=== PATIENT | female | born 1960 | race Caucasian/White ===

== ENCOUNTER 2017-02-17 20:02 | Emergency (ER) | payer MEDICARE, OTHER ==
[~2017-02-17] VITALS: Ht 160 cm; Wt 113.6 kg
[~2017-02-17 20:02] MED LIST: ACYC400T2 PO; ATA16T PO; AZU500 PO; GABA600T2 PO; HYDR2TAB27 PO; MTH/1CAP7 PO; PRE10 PO; PROM25TA14 PO
[2017-02-17 20:06] VITALS: BP 141/90; PULSE 68; RESP 20; O2SAT 98
--- NOTE | 2017-02-17 20:21 | ED.REPORT ---
HPI-Headache Date of Service Feb 17, 2017 ED Provider: Leonel Felder Patient is a 56 year old female with a hx of Lupus, HTN, hyperlipidemia, and kidney cancer who presents to the ED complaining of intermittent dizziness onset this morning upon waking at 0600. Associated symptoms include lightheadedness and a mild headache. Her dizziness is not modified by her position. She has been drinking plenty of fluids today. She denies fever, vomiting, weakness, numbness, tingling, vision changes, difficulties speaking or swallowing, or any other symptoms. She took Tylenol without relief. She had a double spinal fusion 9 weeks ago and was on blood thinners 30 days post-op. Nursing Notes Stated Complaint: HEADACHE, DIZZY Chief Complaint: Headache Nursing Notes Reviewed: Yes Allergies: Coded Allergies: felodipine (Unverified Adverse Reaction, Severe, PEDAL EDEMA, 02/17/17) hydrochlorothiazide (Unverified Adverse Reaction, Severe, FACIAL FLUSHING , 02/17/17) hydrocodone (Verified Adverse Reaction, Severe, NAUSEA, 02/17/17) oxycodone (Verified Adverse Reaction, Severe, NAUSEA, 02/17/17) propranolol (Unverified Adverse Reaction, Severe, FATIGUE, 02/17/17) Uncoded Allergies: QUINIPRIL/LISINOPRIL (Adverse Reaction, Severe, COUGH, 08/14/15) Scheduled Acyclovir (Acyclovir) 400 Mg Tablet 400 MG PO BID Candesartan Cilexetil (Atacand) 16 Mg Tablet 32 MG PO DAILY Gabapentin (Gabapentin) 600 Mg Tablet 600 MG PO HS Mth/Me Blue/Sod Phos/Phen/Hyos (Uribel Capsule) 1 Each Capsule 1 EACH PO UD Prednisone (PredniSONE) 10 Mg Tablet 10 MG PO DAILY Sulfasalazine (Sulfasalazine) 500 Mg Tablet 1,000 MG PO BID Scheduled PRN Hydromorphone (Dilaudid) 2 Mg Tablet 2 MG PO Q4H PRN PRN Pain ALSO ORDERED POST OP Meclizine (Bonine) 25 Mg Tab.chew 25 MG PO TID PRN PRN For Dizziness Promethazine (Promethazine) 25 Mg Tablet 25 MG PO Q4H PRN PRN For Nausea POST OP General Time Seen by MD: 20:20 Chief Complaint Other (Dizziness ) Hx Obtained From: Patient Arrived By: Walk-in Sudden in Onset?: Yes Onset Occurred: 13 - 16 hours ago Symptom Duration: Since onset Similar Sx Previous: No Risk-Headache )( SAH Risk Stratification HypertensionNo Anticoagulation therapy, No Coagulopathy, No Prior SAH RF Statements: Risk factors reviewed )( IC Mass Risk Stratification No HIV RF Statements: Risk factors reviewed Past Medical History Past Medical History Notes: Undergone previous evauation for monoclonal gammopathy Past Medical History collagen vascular disease characterized as polymyalgia rheumatica vs rheumatoid arthritis on chronic prednisone Lupus Reports: Asthma, Cancer (Kidney ), Hyperlipidemia, Hypertension Past Surgical History nephrectomy - 2004 bilateral breast reductions knee surgery Double spine fusion involving L4-5 Smoking History Never Smoker Social History Alcohol Use: Denies alcohol use Other Social History: Ambulatory Status Independent Review of Systems Review of Systems Note: -tingling Constitutional: Denies: Fever GI: Denies: Dysphagia, Vomiting Neurologic: Reports: Dizziness, Headache, Lightheaded, Denies: Numbness, Slurred speech, Unable to speak, Vision change, Weakness Complete sys rev & neg: except as marked. Physical Exam Initial Vital Signs Vital Signs (First) Date Time Temp Pulse Resp B/P Pulse Ox O2 Delivery O2 Flow Rate FiO2 02/17/17 20:06 36.2 68 20 141/90 98 Room Air Initial VS: Reviewed Abdomen / GI: Soft, Non-tender Skin: Warm, Dry Psychiatric: Mood/affect normal, Behavior normal, Normal thought content General/Constitutional: Awake, Alert, Well developed Head / Eyes: Atraumatic, Normocephalic, PERRL, EOMI Neck: Supple, Full range of motion Neurologic: Oriented X3, Speech NL, CN II - XII intact Iomkob-tokq-kohnsc intact Strength in extremities 5/5 gely-hallpike maneuver improves symptoms Respiratory / Chest: Breath sounds NL, Breath sounds = bilat, No respiratory distress Cardiovascular: Heart rate NL, Regular rhythm, Heart sounds NL, No murmurs Re-Eval/Medical Decision Med Decision/Clinical Course 56-year-old female presenting with dizziness and headache throughout the day today. Intermittent. She has no other neurological deficits. Vital signs are stable. She has no neurological deficits on exam. Her dizziness improved with [place]-Hallpike. She declined CT scan. Most likely benign positional vertigo. She also declined labs. Her orthostatics were negative. She was discharged with meclizine. Follow up with primary doctor. Return precautions given. Re-Evaluation/Progress : Time of Eval: 21:35 Re-Evaluation/Progress Note: Discussed plan for discharge. Patient understands and agrees with plan. All quesitons addressed at this time. Counseled Regarding: Diagnosis, Need for follow-up, When/why to return to ED Discharge & Departure Impression: Primary Impression: Benign positional vertigo Laterality: unspecified laterality Qualified Code: H81.10 - Benign paroxysmal vertigo, unspecified ear Disposition: Home Discharge Condition All VS Reviewed: Yes Condition: Stable Patient Instructions: Benign Paroxysmal Positional Vertigo (ED) Additional Instructions: Thank you for entrusting us with your care. I do not believe you had a stroke or are dehydrated. I believe your symptoms are due to benign positional vertigo. Take Meclizine for your symptoms. If it does not help, give your symptoms time and follow up with your primary doctor if your symptoms persist. Return to the emergency department if you develop vomiting, chest pain, shortness of breath, weakness, increasing headache, fever, or any other symptoms. Referrals: Jacinta Garay MD (PCP) Scribe Attestation Portions of this note were transcribed by Renard Nguyen. I, Dr. Felder personally performed the history, physical exam and medical decision-making; I reviewed and confirmed the accuracy of the information in the transcribed note. Signed by: Renard Nguyen 02/17/17, 2140 copies to: Jacinta Garay MD, Ben M MD Feb 17, 2017 20:21 RENARD NGUYEN Feb 17, 2017 21:25
[2017-02-17] MEDS ORDERED: MECL-114 PO (21:38)
[2017-02-17] MEDS ORDERED: MetoCLOpramide 5 mg/mL 2 mL Inj IM ONE (21:40)
[2017-02-17 22:08] VITALS: BP 144/86; PULSE 75; O2SAT 97
[2017-02-17 22:10] VITALS: BP 144/82
== END 2017-02-17 22:47 | disposition home or self-care (01) ==
LOC: SED 20:02
DX: H81.10 Benign paroxysmal vertigo, unspecified ear (principal); R51 Headache; J45.909 Unspecified asthma, uncomplicated; I10 Essential (primary) hypertension; E78.5 Hyperlipidemia, unspecified; Z88.5 Allergy status to narcotic agent; Z88.8 Allergy status to other drugs, medicaments and biological substances; M32.9 Systemic lupus erythematosus, unspecified
CPT/HCPCS: 96372; 99284; J1885; J2765